=== PATIENT | male | born 1975 | race Caucasian/White ===

== ENCOUNTER 2017-01-13 09:41 | Emergency (ER) | payer OTHER ==
[~2017-01-13] VITALS: Ht 182.9 cm; Wt 78.9 kg
[2017-01-13 10:48] LABS: Basophils # (auto) 0 uL; Basophils % (auto) 0.2 % (0.0-2.0); CONDITION Y; Eosinophils # (auto) 0.2 uL; Eosinophils % (auto) 1.8 % (0.0-7.0); Hematocrit 48.5 % (41.0-53.0); Hemoglobin 16.3 g/dL (13.5-17.5); Lymphocytes # (auto) 1.6 uL; Lymphocytes % (auto) 16.6 % (10.0-50.0); Mean Corpuscular Hemoglobin 31.6 pg (28.0-32.0); Mean Corpuscular Hgb Conc. 33.6 g/dL (32.0-36.0); Mean Corpuscular Volume 93.9 fL (80.0-100.0); Mean Platelet Volume 9.8 fL (7.4-10.4); Monocytes # (auto) 1.1 uL; Monocytes % (auto) 11.3 % (0.0-12.0); Neutrophils # (auto) 6.6 uL; Neutrophils % (auto) 70.1 % (37.0-80.0); Platelet Count (auto) 204 10^3/uL (140-450); Red Cell Distribution Width 12.2 % (11.6-16.0); White Blood Cell 9.4 10^3/uL (4.4-10.8)
[2017-01-13 11:10] LABS: BUN/Creatinine Ratio 10.3; Potassium 4.1 mmol/L (3.5-5.1)
[2017-01-13 11:11] LABS: Albumin 3.8 g/dL (3.4-5.0); Bilirubin, Total 1.3 mg/dL (0.2-1.0); Calcium 9.2 mg/dL (8.5-10.1); Total Protein 7.9 g/dL (6.4-8.2)
[2017-01-13 12:38] VITALS: BP 128/78
[2017-01-13 12:45] LABS: Urine Bilirubin Negative (Negative); Urine Color Yellow (Yellow); Urine Glucose Normal (Normal); Urine Ketone Negative (Negative); Urine Mucus FEW (None Seen); Urine Nitrite Negative (Negative); Urine RBC 12 /hpf (0 - 3); Urine Urobilinogen Normal (Negative); Urine pH 6.5 (5.0-8.0)
[2017-01-13 12:47] LABS: Urine Blood 1+ /uL (Negative)
== END 2017-01-13 13:10 | disposition home or self-care (01) ==
LOC: ER 09:54
DX: K21.9 Gastro-esophageal reflux disease without esophagitis (principal); K59.00 Constipation, unspecified
CPT/HCPCS: 36415; 71020; 74176; 80053; 81001; 82150; 83690; 85025